=== PATIENT | female | born 1985 | race Caucasian/White ===

== ENCOUNTER 2020-11-16 17:22 | Emergency (ER) | payer MEDICAID, OTHER ==
[2020-11-16 19:31] VITALS: BP 155/113
[2020-11-16] MEDS ORDERED: LORazepam 0.5 MG TABLET PO STA (19:46)
--- NOTE | 2020-11-16 19:47 | ED Physician Documentation ---
History of Present Illness - Stated complaint Stated Complaint: PANIC ATTACK - Chief complaint Chief Complaint: MHE - History obtained from History obtained from: Patient - History of Present Illness Timing: Today Pain level max: 0 Pain level now: 0 - Additonal information Additional information: 35-year-old female presents to the emergency department stating she has had increased anxiety at home. Feels like she cannot control her anxiety. She works as a licensed clinical social worker. She is on several medications, but does not feel like they are helping currently. She is not currently suicidal or homicidal. Lives at home with her children. She is requesting something to help her calm down. Review of Systems Constitutional: denies: Fever, Chills Respiratory: denies: Cough GI: denies: Vomiting, Diarrhea : denies: Now EGA Skin: denies: Rash Musculoskeletal: denies: Neck pain, Back pain Neurologic: denies: Headache PD PAST MEDICAL HISTORY - Past Medical History Past Medical History: No Psych: Depression, Anxiety, Bipolar disorder - Past Surgical History Past Surgical History: No - Present Medications Home Medications: Ambulatory Orders Medication Instructions Recorded Confirmed ARIPiprazole [Abilify Mycite] 30 mg PO QPM 11/16/20 11/16/20 Duloxetine HCl [Cymbalta] 60 mg PO DAILY 11/16/20 11/16/20 LORazepam [Ativan] 0.5 mg PO BID #5 tablet 11/16/20 buPROPion HCL [Bupropion Xl] 300 mg PO DAILY 11/16/20 11/16/20 lamoTRIgine [Lamictal Xr] 200 mg PO DAILY 11/16/20 11/16/20 - Allergies Allergies/Adverse Reactions: Allergies Allergy/AdvReac Type Severity Reaction Status Date / Time No Known Drug Allergies Allergy Verified 11/16/20 19:54 - Living Situation Living Situation: reports: With family Living Arrangement: reports: At home - Social History Does the pt smoke?: No Does the pt drink ETOH?: No Does the pt have substance abuse?: No PD ED PE NORMAL - Vitals Vital signs reviewed: Yes - General General: Alert and oriented X 3, Other (tearful, anxious) - HEENT HEENT: PERRL, Moist mucous membranes - Neck Neck: Supple, no meningeal sign - Cardiac Cardiac: RRR, Strong equal pulses - Respiratory Respiratory: No respiratory distress, Clear bilaterally - Abdomen Abdomen: Soft, Non tender, Non distended - Derm Derm: Warm and dry - Extremities Extremities: No edema - Neuro Neuro: Alert and oriented X 3 - Psych Psych: Normal mood, Normal affect Results - Vitals Vitals: Vital Signs - 24 hr 11/16/20 19:30 Temperature 36.8 C Heart Rate 105 H Respiratory 20 Rate Blood Pressure 155/113 H O2 Saturation 99 Oxygen O2 Source Room air PD MEDICAL DECISION MAKING - ED course Complexity details: considered differential, d/w patient, d/w consultant dietitian ED course: Patient appears anxious in the emergency department. Social work did evaluate the patient and patient was given resources. The patient does not have anyone to drive her home, therefore single dose of Ativan will be dispensed to her as all of the pharmacies are closed tonight. She will take this when she gets jono e. She will follow up with her doctor later this week for further care. Will prescribe a small amount of Ativan for home as well. No SI or HI. Patient counseled regarding signs and symptoms for which I believe and urgent re- evaluation would be necessary. Patient with good understanding of and agreement to plan and is comfortable going home at this time This document was made in part using voice recognition software. While efforts are made to proofread this document, sound alike and grammatical errors may occur. Departure - Departure Disposition: 01 Home, Self Care Clinical Impression: Anxiety Condition: Good Instructions: ED Panic Attack Follow-Up: your,doctor this week for repeat evaluation [Other] Prescriptions: LORazepam [Ativan] 0.5 mg PO BID #5 tablet Comments: You can take the Ativan when you get home. Do not drive or operate heavy machinery while taking the Ativan. Return if you worsen. Discharge Date/Time: 11/16/20 20:01
== END 2020-11-16 20:01 | disposition home or self-care (01) ==
LOC: ED 17:22
DX: F41.9 Anxiety disorder, unspecified (principal)
CPT/HCPCS: 99282; 99284; A9270